=== PATIENT | female | born 2000 | race Caucasian/White ===

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

== ENCOUNTER 2021-02-22 21:17 | Emergency (ER) | payer SELFPAY ==
--- NOTE | 2021-02-22 21:22 | XRR_ITS ---
PROCEDURE INFORMATION: Exam: XR Chest Exam date and time: 02/22/2021 9:22 PM Age: 21 years old Clinical indication: Cough and shortness of breath; Additional info: N/v, SOB, cough. Covid + TECHNIQUE: Imaging protocol: XR of the chest. Views: 1 view. COMPARISON: CR XR chest 1V portable [id number] 11/06/2019 8:03 PM FINDINGS: Lungs: Mild increase in streaky infrahilar airspace opacities bilaterally. Mild decrease in lung volumes. No vascular dilation. Pleural spaces: Unremarkable. No pleural effusion. No pneumothorax. Heart/Mediastinum: Unremarkable. No cardiomegaly. Bones/joints: Unremarkable. XR/XR chest 1V portable [id number] IMPRESSION: Increased streak like infrahilar airspace opacities consistent with atypical pneumonia such as COVID-19 pneumonia.
[2021-02-22 21:44] VITALS: BP 133/77; PULSE 124; RESP 17; TEMP 39.8; O2SAT 96; BMI 32.6
[2021-02-22 22:17] VITALS: BP 109/71; PULSE 127; RESP 15; O2SAT 96
[2021-02-22 22:18] VITALS: O2SAT 98
--- NOTE | 2021-02-22 22:23 | ED_ITS ---
HPI - COVID General: Chief Complaint: COVID symptoms Stated Complaint: Covid Positive Time Seen by Provider: 02/22/21 22:15 Source: patient Mode of arrival: ambulatory Limitations: no limitations Triage information: Has fever, cough or shortness of breath . Exposure to COVID + person last 14 days History of Present Illness: HPI Narrative: 21-year-old female states she has had cold-like symptoms for 5 days and tested positive on Thursday. States that her fevers just keep getting worse and had a temperature tonight of 103. States she has body aches as well she has had some nausea and vomiting. She had a cough denies any shortness of breath. Denies any worsening proving factors. She does have a high fever 103 here likely causing her tachycardia she has no hypoxia. COVID 19 common symptoms: positive fever(s), chills, body aches and nausea; negative dyspnea, headache(s), throat pain, vomiting or diarrhea COVID 19 other sytmptoms: negative chest pain COVID Results: Nasal/Oral Coronavirus 2019 PCR See comments 11/08/19 11:49 11/08/19 Review of Systems Const: Reports: fever(s), chills and body aches; Denies: change in appetite Eyes: Denies: blurry vision or eye discomfort ENMT: Denies: throat pain or dental pain Card: Denies: chest pain Resp: Denies: dyspnea GI: Reports: nausea; Denies: abdominal pain, vomiting or diarrhea : Denies: dysuria Musc: Denies: neck pain or back pain Skin/Breast: Denies: rash Neuro: Denies: headache(s) Psych: Denies: depression Lon/Lymph: Denies: easy bruising All/Imm: Denies: urticaria PFS ED PFSH: Medical History (Updated 02/22/21 @ 23:23 by Araceli Brennan MD) No pertinent past medical history Surgical History History of tonsillectomy (~2006) Family History Mother Hypertension Sister Hypertension Grandmother Hypertension maternal Social History Smoking and tobacco status: never smoked Alcohol intake: current Household members: family Housing: House Female Reproductive History: Date of last menstrual period: 06/30/20 Physical Exam Const: COMMON NORMALS: no acute distress, patient oriented x3 and healthy appearing HENMT: COMMON NORMALS: normocephalic and atraumatic HEAD & SCALP: normocephalic and atraumatic Eye: COMMON NORMALS: Equal, round and reactive pupils present and EOMs intact bilaterally PUPIL: Yes Equal, round and reactive pupils present Neck/C-Spine: COMMON NORMALS: full ROM and supple Chest: COMMONS NORMALS: normal inspection of the chest and normal palpation of entire chest wall Resp: COMMON NORMALS: normal respiratory effort, No retractions, No use of accessory muscles and clear to auscultation bilaterally AUSCULTATION: clear to auscultation bilaterally Cardio: COMMON NORMALS: regular rhythm and No murmurs present (Cardio) RATE: tachycardic RHYTHM: regular rhythm GI: COMMON NORMALS: Normal to inspection, nondistended, normoactive bowel sounds present, Soft to palpation, non-tender and no masses PALPATION: Yes Soft to palpation Extremity: COMMON NORMALS: normal to inspection and full ROM Neuro: COMMON NORMALS: patient oriented x3, moves all extremities and no focal motor deficits Psych: COMMON NORMALS: mental status grossly normal, Normal thought process present and cooperative THOUGHT PROCESS: Normal thought process present Skin: COMMON NORMALS: no rashes or lesions noted and no wounds GENERAL SKIN EXAM: no rashes or lesions noted Course Vital Signs: Vital signs: Vital Signs Temperature 103.7 F H 02/22/21 21:44 Pulse Rate 127 H 02/22/21 22:17 Respiratory Rate 15 02/22/21 22:17 Blood Pressure 109/71 02/22/21 22:17 Pulse Oximetry 98 02/22/21 22:18 MDM - COVID MDM Narrative: Medical decision making narrative: Patient presents with COVID- 19 likely causing her symptoms. She is well-appearing here not requiring any oxygen. Her heart rate here is improved after treated her fever. She is stable for discharge follow-up PCP and return if worsening. Lab Data: Labs: Lab Results 02/22/21 02/22/21 Range/Units 22:42 22:42 WBC 3.3 L (4.5-13.0) 10^3/ uL RBC 5.03 (4.1-5.3) 10^6/u L Hgb 12.6 (11.5-15.3) g/dL Hct 39.8 (37.0-47.0) % MCV 79.1 L (81-99) fL MCH 25.0 L (28.0-34.0) pg MCHC 31.7 (30.0-36.0) g/dL RDW 16.9 H (12.1-15.1) % Plt Count 138 (130-400) 10^3/c mm MPV 11.9 H (7.4-10.4) fL Neut % (Auto) 72.8 % Lymph % (Auto) 19.3 % [place] % (Auto) 7.6 % Eos % (Auto) 0.0 % Baso % (Auto) 0.0 % Neut # (Auto) 2.41 (1.8-8.0) 10^3/u L Lymph # (Auto) 0.6 L (1.5-6.5) 10^3/u L [place] # (Auto) 0.3 (0.2-0.9) 10^3/u L Eos # (Auto) 0.0 (0.0-0.8) 10^3/u L Baso # (Auto) 0.0 (0.0-0.1) 10^3/u L Nucleated RBC % (a uto) 0 % Nucleated RBCs # 0.0 /100WBC Sodium 135 L (136-145) mmol/L Potassium 3.6 (3.5-5.1) mmol/L Chloride 104 (98-107) mmol/L Carbon Dioxide 22 (22-29) mmol/L Anion Gap 12.6 (5-19) BUN 10 (6-20) mg/dL Creatinine 0.6 (0.5-0.9) mg/dL GFR Calculation 127.5 (90-130) mL/min Glucose 104 (65-115) mg/dL Calculated Osmolal ity 279 L (285-295) mOsm/k g Calcium 8.4 L (8.5-10.5) mg/dL Total Bilirubin 0.2 (0.15-1.2) mg/dL AST 26 (0-32) U/L ALT 16 (0-33) U/L Alkaline Phosphata se 61 (35-105) IU/L Total Protein 6.6 (6.6-8.7) g/dL Albumin 4.2 (3.5-5.2) g/dL Globulin 2.4 (1.3-4.6) g/dL Imaging Data: CXR: Attestation: I personally reviewed and interpreted this imaging study as follows: Radiologist's impression: [address] [place] [address] XRay Report Signed Patient: Martha Aguirre Unit #: [id number] : 2000 Age/Sex: 21 / F ADM Date: 02/22/21 Loc: ER Room/Bed: Attending Dr: Ordering Provider/Ordering MD: Araceli Brennan MD Date of Service: 02/22/21 Procedure(s): XR chest 1V portable [id number] Accession Number(s): [id number] Report Number: [id number] PROCEDURE INFORMATION: Exam: XR Chest Exam date and time: 02/22/2021 9:22 PM Age: 21 years old Clinical indication: Cough and shortness of breath; Additional info: N/v, SOB, cough. Covid + TECHNIQUE: Imaging protocol: XR of the chest. Views: 1 view. COMPARISON: CR XR chest 1V portable [id number] 11/06/2019 8:03 PM FINDINGS: Lungs: Mild increase in streaky infrahilar airspace opacities bilaterally. Mild decrease in lung volumes. No vascular dilation. Pleural spaces: Unremarkable. No pleural effusion. No pneumothorax. Heart/Mediastinum: Unremarkable. No cardiomegaly. Bones/joints: Unremarkable. XR/XR chest 1V portable [id number] IMPRESSION: Increased streak like infrahilar airspace opacities consistent with atypical pneumonia such as COVID-19 pneumonia. Dictated By: Jose Manuel Parra Signed By: Jose Manuel Parra Signed Date/Time: 02/22/21 2259 COVID Results: Nasal/Oral Coronavirus 2019 PCR See comments 11/08/19 11:49 11/08/19 Discharge Plan Discharge Patient Disposition: Home Clinical Impression: COVID-19 Condition: Stable Prescriptions: New albuterol sulfate 90 mcg/actuation HFA aerosol inhaler 2 inh INHALATION Q6H PRN (Reason: shortness of breath or wheezing) Qty: 8 RF: 0 No Action prenat.vits,clary,bmy-xijy-unmfz Tablet 1 tab PO DAILY RF: 0 nitrofurantoin monohyd/m-cryst [Macrobid] 100 mg capsule 100 mg PO .COMPLEX Qty: 30 RF: 6 fluconazole [Diflucan] 150 mg tablet See Rx Instructions PO DAILY Qty: 3 RF: 0 Discharge Orders: Discharge ED (Routine); Ordered 02/22/21 Ordered By: Araceli Brennan Discharge Diet: Advance as tolerated Discharge Activity: Resume usual activity Patient Instructions: Viral Syndrome (ED) Coding Level of Care Code ED General 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
[2021-02-22] MEDS: sodium chloride 0.9% 1,000 ML 999 ML IV (22:28)
[2021-02-22] MEDS: acetaminophen 500 mg Tablet 1000 MG PO (22:28)
[2021-02-22] MEDS: ondansetron 2 mg/ML SDV 2 mL 4 MG IVP ×2 (22:28→22:51)
[2021-02-22] MEDS: morphine 4 mg/mL SDV 1 mL IVP (22:51)
[2021-02-22 22:52] LABS: Hematocrit 39.8 % (37.0-47.0); Hemoglobin 12.6 g/dL (11.5-15.3); Lymphocytes # 0.6 10^3/uL (1.5-6.5); Lymphocytes % 19.3 %; Mean Corpuscular HGB Conc 31.7 g/dL (30.0-36.0); Mean Corpuscular Volume 79.1 fL (81-99); Mean Platelet Volume 11.9 fL (7.4-10.4); Monocytes # 0.3 10^3/uL (0.2-0.9); Monocytes % 7.6 %; Neutrophils # 2.41 10^3/uL (1.8-8.0); Neutrophils % 72.8 %; Nucleated Red Blood Cells % 0 %; Platelet Count 138 10^3/cmm (130-400); Red Blood Count 5.03 10^6/uL (4.1-5.3); Red Cell Distribution Width 16.9 % (12.1-15.1); White Blood Count 3.3 10^3/uL (4.5-13.0)
[2021-02-22 23:06] LABS: Alanine Aminotransferase 16 U/L (0-33); Albumin Level 4.2 g/dL (3.5-5.2); Alkaline Phosphatase 61 IU/L (35-105); Anion Gap 12.6 (5-19); Aspartate Amino Transferase 26 U/L (0-32); Blood Urea Nitrogen 10 mg/dL (6-20); Calcium 8.4 mg/dL (8.5-10.5); Carbon Dioxide 22 mmol/L (22-29); Chloride 104 mmol/L (98-107); Globulin 2.4 g/dL (1.3-4.6); Glomerular Filtration Rate 127.5 mL/min (90-130); Glucose 104 mg/dL (65-115); Osmolality Calculated 279 mOsm/kg (285-295); Potassium 3.6 mmol/L (3.5-5.1); Sodium 135 mmol/L (136-145); Total Bilirubin 0.2 mg/dL (0.15-1.2); Total Protein 6.6 g/dL (6.6-8.7)
[2021-02-22] MEDS: dexamethasone 4 mg/mL INJ 10 MG IVP (23:27)
== END 2021-02-22 23:39 | disposition home or self-care (01) ==
PROVIDERS: Emergency Provider Emergency Medicine
DX: U07.1 COVID-19 (principal)
CPT/HCPCS: 71045; 80053; 85025; 96361; 96374; 96375; 96376; 99284; J1100; J2270; J2405; J7030